=== PATIENT | female | born 1970 | race Caucasian/White ===

== ENCOUNTER 2017-10-11 11:26 | Day surgery (SDC) | payer OTHER ==
[2017-09-05 14:29] VITALS: BMI 29.6
[2017-10-11] MEDS ORDERED: Lactated Ringer's 1,000 ML IV ONE (12:32)
[2017-10-11] MEDS ORDERED: Midazolam 2 MG/2 ML VIAL ONE (12:37)
[2017-10-11] MEDS ORDERED: Propofol 10 mg/ml Inj (20 ML) ONE ×2 (12:38→12:54)
[2017-10-11 13:33] VITALS: TEMP 98.7
[2017-10-11 13:37] VITALS: O2SAT 100
[2017-10-11 14:02] VITALS: BP 121/64; PULSE 71; RESP 12
== END 2017-10-11 14:20 | disposition home or self-care (01) ==
LOC: C.ENDO 11:26
PROVIDERS: ATTEND Internal Medicine
DX: K31.7 Polyp of stomach and duodenum (principal); K64.8 Other hemorrhoids; K29.70 Gastritis, unspecified, without bleeding; K57.90 Diverticulosis of intestine, part unspecified, without perforation or abscess without bleeding; R10.13 Epigastric pain; R19.5 Other fecal abnormalities
CPT/HCPCS: 43239; 45380; 82948; 84703; 88305; J2001; J2250; J2704; J7120